=== PATIENT | female | born 1935 | race Caucasian/White ===

== ENCOUNTER 2018-05-17 12:42 | Inpatient (IN) | END 2018-05-22 12:36 | disposition home or self-care (01) | DRG 872 ==

== ENCOUNTER 2019-01-08 20:36 | Inpatient (IN) | payer BC ==
[~2019-01-08] VITALS: Ht 162.6 cm; Wt 74.8 kg
[~2019-01-08 20:36] MED LIST: ALEN70TA5 PO; AMLO-147 PO; APIX2.5T PO; GLIM2TAB PO; LEVE-5 PO; LEVO125T7 PO; METO-448 PO; SIMV10TA PO
[2019-01-09] VITALS (10 sets, daily range): BP systolic 103–123; BP diastolic 59–71; PULSE 63–89; RESP 17–20; Ht 162.6 cm; Wt 74.8 kg
[2019-01-09] MEDS ORDERED: ACETAMINOPHEN 325 MG TAB PO PRN (02:00)
[2019-01-09] MEDS ORDERED: ONDANSETRON 4 MG INJ IV PRN (02:00)
[2019-01-09] MEDS ORDERED: BISACODYL (EC) 5 MG TAB PO PRN (02:00)
[2019-01-09] MEDS ORDERED: NACL 0.9% 3 ML SYG IV SCH (02:00)
[2019-01-09] MEDS ORDERED: FUROSEMIDE 40 MG INJ IV ONE (02:00)
[2019-01-09] MEDS ORDERED: DOCUSATE SODIUM 100 MG CAP PO PRN (02:00)
[2019-01-09] MEDS: LEVOTHYROXINE 125 MCG TAB PO SCH (06:59)
--- NOTE | 2019-01-09 07:44 | HP ---
Date/Time of Note Date/Time of Note DATE: 01/09/19 TIME: 07:44 Assessment/Plan VTE Prophylaxis SCD applied (from Nsg): Yes Pharmacological prophylaxis: NA/contraindicated Pharm contraindication: low risk/ambulating Lines/Catheters IV Catheter Type (from Nrsg): Saline Lock Urinary Cath still in place: No Assessment/Plan Hospital Course This is a 83-year-old female being admitted to the telemetry floor observation for: #1 bilateral lower extremity edema: Suspect undiagnosed CHF. There is trace pitting edema in the bilateral lower extremities after receiving Lasix. Will give patient Lasix 20 mg IV daily. Will obtain an echocardiogram to assess heart morphology. Elevated BNP of approximately 1000. Consider cardiology consultation. #2 bilateral lower extremity pain: Possibly secondary to underlying edema, however she also points to her knees causing her pain, will obtain bilateral x- rays of the knee. #3 itchy scalp: Possibly some more dermatitis/dandruff. Will apply Nizoral shampoo daily #4 history of atrial fibrillation: Currently rate controlled, continue Eliquis #5 hypertension: amlodipine for now, may need to discontinue this if this could be possibly contributing to the lower extremity swelling and will need to confirm with the family if this has been started recently. #6 hypothyroidism: We will check a TSH, continue levothyroxine #7 seizure disorder: Continue Keppra #8 forgetfulness: Likely component of dementia, will need formal evaluation on an outpatient basis. #9 DVT GI prophylaxis: SCDs, no GI prophylaxis indicated Further treatment strategy will be implemented as per the course Result Diagram: 01/09/19 0539 01/09/19 0539 Results 24hrs Laboratory Tests Test 01/08/19 22:33 01/09/19 05:39 White Blood Count 8.5 # 7.4 Red Blood Count 4.47 4.59 Hemoglobin 13.6 13.9 Hematocrit 41.2 42.2 Mean Corpuscular Volume 92.2 91.9 Mean Corpuscular Hemoglobin 30.4 30.3 Mean Corpuscular Hemoglobin Concent 33.0 32.9 Red Cell Distribution Width 13.5 13.7 Platelet Count 245 # 254 Mean Platelet Volume 10.3 11.0 H Immature Granulocytes % 0.200 0.300 Neutrophils % 56.6 54.2 Lymphocytes % 31.4 33.7 Monocytes % 10.7 10.2 Eosinophils % 0.7 1.1 Basophils % 0.4 0.5 Nucleated Red Blood Cells % 0.0 0.0 Immature Granulocytes # 0.020 0.020 Neutrophils # 4.8 4.0 Lymphocytes # 2.7 2.5 Monocytes # 0.9 0.8 Eosinophils # 0.1 0.1 Basophils # 0.0 0.0 Nucleated Red Blood Cells # 0.0 0.0 Sodium Level 137 140 Potassium Level 4.4 4.3 Chloride Level 104 99 Carbon Dioxide Level 26 28 Anion Gap 7 13 Blood Urea Nitrogen 28 H 25 H Creatinine 1.21 H 1.02 H Est Glomerular Filtrat Rate mL/min Glucose Level 106 113 Calcium Level 10.1 9.9 Total Bilirubin 0.5 0.6 Direct Bilirubin 0.00 0.00 Indirect Bilirubin 0.5 0.6 Aspartate Amino Transf (AST/SGOT) 26 29 Alanine Aminotransferase (ALT/SGPT) 16 23 Alkaline Phosphatase 88 73 Troponin I < 0.012 < 0.012 B-Type Natriuretic Peptide 1190 H Total Protein 8.2 H 8.0 Albumin 4.6 4.7 Globulin 3.60 H 3.30 H Albumin/Globulin Ratio 1.27 1.42 Hemoglobin A1c 6.4 H Magnesium Level 2.0 Creatine Kinase 94 Creatine Kinase Index 1.0 Creatinine Kinase MB (Mass) 0.95 Triglycerides Level 78 Cholesterol Level 174 LDL Cholesterol, Calculated 87 HDL Cholesterol 71 Cholesterol/HDL Ratio 2.4 Thyroid Stimulating Hormone (TSH) 1.160 HPI/ROS Admit Date/Time Admit Date/Time Jan 09, 2019 at 01:42 Hx of Present Illness Chief complaint: Bilateral lower extremity edema This is a 83-year-old female who was brought in by her family members with complaints of bilateral lower extremity edema worse on the right than the left. The family apparently reported that the patient is not always compliant with her medications. Family does report that she has been showing to have increased forgetfulness and sometimes puts her medications in her abdomen and lyse that she takes them. Patient at home is ambulatory and independent. She also reports that she has had some itchiness of her scalp which results in pain after she scratches it. Upon my examination of the patient at the bedside she appeared to be in no acute distress. Bilateral lower extremities did not show any overt edema. Chest exam did have some coarse rales on examination. Allergies: NKDA Medications: See NOV ROS Const: As per HPI Eyes : No pain discharge or redness or change in visual acuity ENT: No pain, sore throat, congestion, congestion, dysphagia or discharge Respiratory: No shortness of breath, cough, sputum, wheezing, or pleuritic pain Cardiovascular: No chest pain, palpitation, PND, or edema GI : no change in appetite, abdominal pain, nausea, vomiting, diarrhea, constipation, or change in the color his stool Genitourinary: No dysuria, hematuria, flank pain , discharge or CVA tenderness Musculoskeletal: As per HPI Skin: No rash, bruising or hives Neuro: No headache, dizziness, syncope, seizure, focal weakness Endocrine: No polyuria, polydipsia, temperature intolerance Psych: No hallucination, depression, anxiety or suicidal ideation PMH/Family/Social Past Medical History Atrial fibrillation, hypothyroidism, hypertension, seizures Medications Current Medications Amlodipine Besylate (Norvasc) 10 mg DAILY PO ; Start 01/09/19 at 09:00 Apixaban (Eliquis) 2.5 mg BID PO ; Start 01/09/19 at 09:00 Levetiracetam (Keppra) 500 mg BID PO ; Start 01/09/19 at 09:00 Levothyroxine Sodium (Synthroid) 125 mcg BEFORE BREAKFAST PO Last administered on 01/09/19at 06:59; Admin Dose 125 MCG; Start 01/09/19 at 07:00 Atorvastatin Calcium (Lipitor) 10 mg DAILY@21 PO ; Start 01/09/19 at 21:00 IV Flush (NS 3 ml) 3 ml PER PROTOCOL IV ; Start 01/09/19 at 02:00 Ondansetron HCl (Zofran Inj) 4 mg Q6H PRN IV NAUSEA/VOMITING; Start 01/09/19 at 02:00 Acetaminophen (Tylenol Tab) 650 mg Q6H PRN PO .PAIN 1-3 OR TEMP; Start 01/09/19 at 02:00 Docusate Sodium (Colace) 100 mg Q12H PRN PO .CONSTIPATION; Start 01/09/19 at 02:00 Bisacodyl (Dulcolax) 5 mg DAILY PRN PO .CONSTIPATION; Start 01/09/19 at 02:00 Furosemide (Lasix) 20 mg DAILY IV ; Start 01/09/19 at 09:00; Status UNV Ketoconazole (Nizoral Shampoo) 1 applic ONCE ONCE TOP ; Start 01/09/19 at 08:00; Stop 01/09/19 at 08:01; Status UNV Coded Allergies: No Known Allergy (Unverified , 01/09/19) Past Surgical History Abdominal surgery Family History Significant Family History: no pertinent family hx Social History Alcohol Use: none Smoking Status: Never smoker Drug Use: none Exam/Review of Systems Vital Signs Vitals Vital Signs Date Temp Pulse Resp B/P (MAP) Pulse Ox O2 O2 Flow FiO2 Time Delivery Rate 01/09/19 97.7 88 17 117/67 99 05:15 (84) 01/09/19 Room Air 03:45 Exam Exam General: Patient is a pleasant female currently lying in bed in no acute distress, she does appear to be itching her scalp. HEENT: Atraumatic, normocephalic. The pupils are equal, round and reactive. Extraocular motor are intact, mild flaking noted of the scalp and erythema, Neck: Supple with full range of motion. No rigidity or meningismus Chest: Nontender Lungs: Coarse breath sounds bilaterally, mild rales at the bases, nonlabored breathing Heart: Normal S1-S2, Regular rhythm and rate. No murmur, S3, or S4 Abdomen: Soft , nontender, nondistended , bowel sounds are present. No guarding no rebound tenderness , No masses or organomegaly. No costovertebral temporal angle mass Extremities: Normal to inspection, no edema no cyanosis Neurologic: Alert and oriented, speech normal, cranial nerves II through XII intact Additional Comments Telemetry monitoring: afib, rate controlled. PROCEDURE: XR Chest. CLINICAL INDICATION: Chest pain. TECHNIQUE: AP portable views of the chest were obtained. COMPARISON: 05/17/2018 FINDINGS: There is mild cardiomegaly. There is mild atherosclerotic calcification of the thoracic aorta. There is mild prominence of the central pulmonary vasculature. There is partial lung expansion without focal consolidation. The left costophrenic angle is not well visualized. There are hazy infiltrates involving the paramedian left lower lobe. No signs of pneumothorax is seen.. IMPRESSION: 1. Hazy infiltrates involving the paramedian left lower lobe and lateral left lower lobe, which may be related to atelectasis versus pneumonia. Superimposed p leural effusion is not excluded. 2. Stable mild cardiomegaly with central pulmonary vascular congestion. 3. Mild atherosclerotic calcification of the thoracic aorta. RPTAT: HGAS .Pablo Lew MD, Date Time Electronically viewed and signed by .Pablo Lew MD, MD on 01/08/2019 23:49 .S/ CC: SHAJI HARTMNA [id number] TUCKER TORRES Jan 09, 2019 07:44
[2019-01-09] MEDS: AMLODIPINE 10 MG TAB PO SCH (08:09)
[2019-01-09] MEDS: LEVETIRACETAM 500 MG TAB PO SCH ×2 (08:09→21:29)
[2019-01-09] MEDS: APIXABAN 5 MG TABLET PO SCH ×2 (08:10→21:30)
[2019-01-09] MEDS ORDERED: KETOCONAZOLE 2% SHAMPOO 120 ML BTL TOP ONE (10:00)
[2019-01-09] MEDS: FUROSEMIDE 20 MG INJ IV SCH (10:40)
--- NOTE | 2019-01-09 14:36 | PN ---
Date/Time of Note Date/Time of Note DATE: 01/09/19 TIME: 14:29 Assessment/Plan VTE Prophylaxis Risk score (from Ns)>0 risk: 3 SCD applied (from Ns): Yes Pharmacological prophylaxis: heparin Lines/Catheters IV Catheter Type (from Nrsg): Saline Lock Urinary Cath still in place: No Assessment/Plan Hospital Course Head itching; - topical tx CHF: - TTE pending - Continue lasix Knee pain: - XR with OA, symptomatic care A Fib: - Continue eliquis Dc home tomorrow Result Diagram: 01/09/1939 01/09/19538 Results 24hrs Laboratory Tests Test 01/08/19 22:33 01/09/19 05:39 01/09/19 11:39 White Blood Count 8.5 # 7.4 Red Blood Count 4.47 4.59 Hemoglobin 13.6 13.9 Hematocrit 41.2 42.2 Mean Corpuscular Volume 92.2 91.9 Mean Corpuscular Hemoglobin 30.4 30.3 Mean Corpuscular Hemoglobin Concent 33.0 32.9 Red Cell Distribution Width 13.5 13.7 Platelet Count 245 # 254 Mean Platelet Volume 10.3 11.0 H Immature Granulocytes % 0.200 0.300 Neutrophils % 56.6 54.2 Lymphocytes % 31.4 33.7 Monocytes % 10.7 10.2 Eosinophils % 0.7 1.1 Basophils % 0.4 0.5 Nucleated Red Blood Cells % 0.0 0.0 Immature Granulocytes # 0.020 0.020 Neutrophils # 4.8 4.0 Lymphocytes # 2.7 2.5 Monocytes # 0.9 0.8 Eosinophils # 0.1 0.1 Basophils # 0.0 0.0 Nucleated Red Blood Cells # 0.0 0.0 Sodium Level 137 140 Potassium Level 4.4 4.3 Chloride Level 104 99 Carbon Dioxide Level 26 28 Anion Gap 7 13 Blood Urea Nitrogen 28 H 25 H Creatinine 1.21 H 1.02 H Est Glomerular Filtrat Rate mL/min Glucose Level 106 113 Calcium Level 10.1 9.9 Total Bilirubin 0.5 0.6 Direct Bilirubin 0.00 0.00 Indirect Bilirubin 0.5 0.6 Aspartate Amino Transf (AST/SGOT) 26 29 Alanine Aminotransferase (ALT/SGPT) 16 23 Alkaline Phosphatase 88 73 Troponin I < 0.012 < 0.012 < 0.012 B-Type Natriuretic Peptide 1190 H Total Protein 8.2 H 8.0 Albumin 4.6 4.7 Globulin 3.60 H 3.30 H Albumin/Globulin Ratio 1.27 1.42 Hemoglobin A1c 6.4 H Magnesium Level 2.0 Creatine Kinase 94 96 Creatine Kinase Index 1.0 1.0 Creatinine Kinase MB (Mass) 0.95 0.99 Triglycerides Level 78 Cholesterol Level 174 LDL Cholesterol, Calculated 87 HDL Cholesterol 71 Cholesterol/HDL Ratio 2.4 Thyroid Stimulating Hormone (TSH) 1.160 Subjective 24 Hr Interval Summary Free Text/Dictation SOB improved Complains of head itch and knee pain Exam/Review of Systems Exam Vitals Vital Signs Date Temp Pulse Resp B/P (MAP) Pulse Ox O2 O2 Flow FiO2 Time Delivery Rate 01/09/19 69 12:00 01/09/19 98.1 19 103/59 100 11:37 (74) 01/09/19 Room Air 03:45 Results Results 24hrs Laboratory Tests Test 01/08/19 22:33 01/09/19 05:39 01/09/19 11:39 White Blood Count 8.5 # 7.4 Red Blood Count 4.47 4.59 Hemoglobin 13.6 13.9 Hematocrit 41.2 42.2 Mean Corpuscular Volume 92.2 91.9 Mean Corpuscular Hemoglobin 30.4 30.3 Mean Corpuscular Hemoglobin Concent 33.0 32.9 Red Cell Distribution Width 13.5 13.7 Platelet Count 245 # 254 Mean Platelet Volume 10.3 11.0 H Immature Granulocytes % 0.200 0.300 Neutrophils % 56.6 54.2 Lymphocytes % 31.4 33.7 Monocytes % 10.7 10.2 Eosinophils % 0.7 1.1 Basophils % 0.4 0.5 Nucleated Red Blood Cells % 0.0 0.0 Immature Granulocytes # 0.020 0.020 Neutrophils # 4.8 4.0 Lymphocytes # 2.7 2.5 Monocytes # 0.9 0.8 Eosinophils # 0.1 0.1 Basophils # 0.0 0.0 Nucleated Red Blood Cells # 0.0 0.0 Sodium Level 137 140 Potassium Level 4.4 4.3 Chloride Level 104 99 Carbon Dioxide Level 26 28 Anion Gap 7 13 Blood Urea Nitrogen 28 H 25 H Creatinine 1.21 H 1.02 H Est Glomerular Filtrat Rate mL/min Glucose Level 106 113 Calcium Level 10.1 9.9 Total Bilirubin 0.5 0.6 Direct Bilirubin 0.00 0.00 Indirect Bilirubin 0.5 0.6 Aspartate Amino Transf (AST/SGOT) 26 29 Alanine Aminotransferase (ALT/SGPT) 16 23 Alkaline Phosphatase 88 73 Troponin I < 0.012 < 0.012 < 0.012 B-Type Natriuretic Peptide 1190 H Total Protein 8.2 H 8.0 Albumin 4.6 4.7 Globulin 3.60 H 3.30 H Albumin/Globulin Ratio 1.27 1.42 Hemoglobin A1c 6.4 H Magnesium Level 2.0 Creatine Kinase 94 96 Creatine Kinase Index 1.0 1.0 Creatinine Kinase MB (Mass) 0.95 0.99 Triglycerides Level 78 Cholesterol Level 174 LDL Cholesterol, Calculated 87 HDL Cholesterol 71 Cholesterol/HDL Ratio 2.4 Thyroid Stimulating Hormone (TSH) 1.160 Medications Medication Current Medications Amlodipine Besylate (Norvasc) 10 mg DAILY PO Last administered on 01/09/19at 08:09; Admin Dose 10 MG; Start 01/09/19 at 09:00 Apixaban (Eliquis) 2.5 mg BID PO Last administered on 01/09/19at 08:10; Admin Dose 2.5 MG; Start 01/09/19 at 09:00 Levetiracetam (Keppra) 500 mg BID PO Last administered on 01/09/19at 08:09; Admin Dose 500 MG; Start 01/09/19 at 09:00 Levothyroxine Sodium (Synthroid) 125 mcg BEFORE BREAKFAST PO Last administered on 01/09/19at 06:59; Admin Dose 125 MCG; Start 01/09/19 at 07:00 Atorvastatin Calcium (Lipitor) 10 mg DAILY@21 PO ; Start 01/09/19 at 21:00 IV Flush (NS 3 ml) 3 ml PER PROTOCOL IV ; Start 01/09/19 at 02:00 Ondansetron HCl (Zofran Inj) 4 mg Q6H PRN IV NAUSEA/VOMITING; Start 01/09/19 at 02:00 Acetaminophen (Tylenol Tab) 650 mg Q6H PRN PO .PAIN 1-3 OR TEMP; Start 01/09/19 at 02:00 Docusate Sodium (Colace) 100 mg Q12H PRN PO .CONSTIPATION; Start 01/09/19 at 02:00 Bisacodyl (Dulcolax) 5 mg DAILY PRN PO .CONSTIPATION; Start 01/09/19 at 02:00 Furosemide (Lasix) 20 mg DAILY IV Last administered on 01/09/19at 10:40; Admin Dose 20 MG; Start 01/09/19 at 09:00 CYDNEY HEATON MD Jan 09, 2019 14:36
--- NOTE | 2019-01-09 19:45 | RADRPT ---
Echocardiogram Report Patient Name: MARGRET JONESPatient ID: [id number] : 1935 (83y 8m)Study Date: 01/09/2019 8:23:32 AM Gender: FAccession #: [id number] Tech: Nicanor Jay [facility] Location: 4- Ref.Physician: TUCKER TORRES Height(Cm): BSA: Weight(Kg): Quality: AdequateAccount #: Procedures: Echocardiographic Report: Transthoracic echocardiogram with complete 2D, M-Mode, and doppler examination. Indications: Congestive Heart Failure. Measurements: 2D/M Mode Doppler Measurement Value Normal Range Measurement Value Normal Range LVIDd 2D 2.8 [ 3.8 - 5.2 ] cm AV Peak Aryan 1.4 [ 100.0 - 170.0 ] cm/sec LVIDs 2D 1.9 [ 2.2 - 3.5 ] cm AV Peak PG 7.0 [ 2.0 - 9.0 ] mmHg LVPWd 2D 1.1 [ 0.6 - 0.9 ] cm LVOT Peak Aryan 0.8 [ 70.0 - 110.0 ] cm/sec IVSd 2D 1.5 [ 0.6 - 0.9 ] cm LVOT Peak PG 3.0 [ 2.0 - 6.0 ] mmHg AoR Diam 2D 1.8 [ 2.3 - 3.1 ] cm MV E Peak Aryan 1.0 [ 60.0 - 130.0 ] cm/sec EDV 2D 30.3 [ 46.0 - 106.0 ] ml MV A Peak Aryan 0.2 [ 100.0 - 120.0 ] cm/sec ESV 2D 11.8 [ 14.0 - 42.0 ] ml MV E/A 5.1 [ 0.8 - 1.5 ] ratio EF 2D 61.1 [ 54.0 - 74.0 ] percent MV Decel Time 155 [ 104 - 258 ] msec LA Dimen 2D 5.1 [ 2.7 - 3.8 ] cm Lat E` Aryan 0.1 [ 10.0 - 15.0 ] cm/sec Lateral E/E` 10.3 [ 1.0 - 2.0 ] ratio MV E/A 5.1 [ 0.8 - 1.5 ] ratio TR Peak Aryan 2.9 [ 100.0 - 280.0 ] cm/sec TR Peak PG 34.0 mmHg RVSP 44.0 [ 10.0 - 36.0 ] mmHg Findings: Left Ventricle: Normal left ventricular systolic function. Normal left ventricular cavity size. Sigmoid septum. Ejection fraction is visually estimated at 65 %. Tissue Doppler/Mitral Doppler indices are consistent with pseudonormalization with mildly elevated left atrial pressure (Stage II diastolic dysfunction). Right Ventricle: Normal right ventricular size. Normal right ventricular systolic function. Left Atrium: There is severe enlargement of left atrium. Right Atrium: There is mild enlargement of right atrium. Mitral Valve: Mild mitral leaflet calcification. Mild mitral annular calcification. Mild mitral valve regurgitation. Aortic Valve: No hemodynamically significant aortic stenosis by doppler. Aortic cusps appear mildly calcified. Tricuspid Valve: Normal appearance of the tricuspid valve. Estimated peak PA systolic pressure 44 mmHg. There is mild to moderate tricuspid regurgitation. Pulmonic Valve: Normal pulmonic valve appearance. Pericardium: Normal pericardium with no significant pericardial effusion. Aorta: Normal aortic root. IVC: Normal size and normal respiratory collapse consistent with normal right atrial pressure. Conclusions: Normal left ventricular systolic function. Normal left ventricular cavity size. Sigmoid septum. Ejection fraction is visually estimated at 65 %. Tissue Doppler/Mitral Doppler indices are consistent with pseudonormalization with mildly elevated left atrial pressure (Stage II diastolic dysfunction). There is severe enlargement of left atrium. There is mild enlargement of right atrium. Mild mitral leaflet calcification. Mild mitral annular calcification. Mild mitral valve regurgitation. No hemodynamically significant aortic stenosis by doppler. Aortic cusps appear mildly calcified. Normal appearance of the tricuspid valve. Estimated peak PA systolic pressure 44 mmHg. There is mild to moderate tricuspid regurgitation. Electronically Signed By: Lion Rosales 2019-01-09 19:44:15 PDT
[2019-01-09] MEDS ORDERED: ATORVASTATIN 10 MG TAB PO SCH (21:00)
[2019-01-10] VITALS (10 sets, daily range): BP systolic 102–116; BP diastolic 53–67; PULSE 63–81; RESP 18–20
[2019-01-10] MEDS ORDERED: DIPHENHYDRAMINE 25 MG CAP PO ONE (04:30)
[2019-01-10] MEDS: LEVOTHYROXINE 125 MCG TAB PO SCH (07:05)
[2019-01-10] MEDS: LEVETIRACETAM 500 MG TAB PO SCH (08:03)
[2019-01-10] MEDS: FUROSEMIDE 20 MG INJ IV SCH (08:03)
[2019-01-10] MEDS: APIXABAN 5 MG TABLET PO SCH (08:03)
[2019-01-10] MEDS: AMLODIPINE 10 MG TAB PO SCH (09:00)
[2019-01-10] MEDS ORDERED: KETO120S3 TOP (12:22)
[2019-01-10] MEDS ORDERED: FURO20TA3 PO (12:22)
--- NOTE | 2019-01-10 14:04 | DS ---
Date/Time of Note Date/Time of Note DATE: 01/10/19 TIME: 14:03 Discharge Summary Admission/Discharge Info Admit Date/Time Jan 09, 2019 at 11:04 Discharge Date/Time Discharge Diagnosis Acute diastolic CHF Patient Condition: Stable Hospital Course Head itching; - topical tx was given. Ketoconazole was prescribed at discharge CHF: - TTE showed normal systolic function, mild diastolic disfunction. She was prescribed lasix at discharge - Continue lasix Knee pain with swelling - XR showed OA. Duplex was negative for DVT. She was provided symptomatic care A Fib: - Continued on eliquis Home Meds Active Scripts Ketoconazole* (Ketoconazole*) 2% - 120 Ml Shampoo, 1 APPLIC TOP DAILY for 7 Days, #1 EA WASH HAIR/SCALP AND RINSE OFF Prov:CYDNEY HEATON MD 01/10/19 Furosemide* (Furosemide*) 20 Mg Tablet, 20 MG PO Q48H for 120 Days, #60 TAB Prov:CYDNEY HEATON MD 01/10/19 Reported Medications Apixaban* (Eliquis*) 2.5 Mg Tablet, 2.5 MG PO BID, TAB 05/17/18 Amlodipine Besylate* (Amlodipine Besylate*) 10 Mg Tablet, 10 MG PO DAILY, #30 TAB 05/17/18 Levetiracetam* (Keppra*) 500 Mg Tablet, 500 MG PO BID, TAB 05/17/18 Simvastatin* (Zocor*) 10 Mg Tablet, 10 MG PO QHS, #30 TAB 05/17/18 Levothyroxine Sodium* (Levothyroxine Sodium*) 125 Mcg Tablet, 125 MCG PO BEFORE BREAKFAST, #30 TAB 05/17/18 Discontinued Reported Medications Alendronate Sodium* (Fosamax*) 70 Mg Tablet, 70 MG PO Q7D, #4 TAB 05/17/18 Glimepiride* (Glimepiride*) 2 Mg Tablet, 2 MG PO DAILY, TAB 05/17/18 Metoprolol Tartrate* (Lopressor*) 25 Mg Tab, 25 MG PO BID, #60 TAB 05/17/18 Primary Care Provider Real Lopez Pending Labs Laboratory Tests Test 01/10/19 05:31 White Blood Count 7.1 10^3/ul (4.8-10.8) Red Blood Count 4.31 10^6/ul (4.20-5.40) Hemoglobin 13.1 g/dl (12.0-16.0) Hematocrit 39.5 % (37.0-47.0) Mean Corpuscular Volume 91.6 fl (82.0-101.0) Mean Corpuscular Hemoglobin 30.4 pg (29.0-33.0) Mean Corpuscular Hemoglobin Concent 33.2 g/dl (32.0-37.0) Red Cell Distribution Width 13.6 % (11.5-14.5) Platelet Count 231 10^3/UL (140-415) Mean Platelet Volume 10.9 fl (7.4-10.4) Immature Granulocytes % 0.300 % (0.001-0.429) Neutrophils % 46.3 % (39.0-77.0) Lymphocytes % 39.0 % (15.0-51.0) Monocytes % 11.8 % (0.0-11.0) Eosinophils % 2.0 % (0.0-7.0) Basophils % 0.6 % (0.0-2.0) Nucleated Red Blood Cells % 0.0 /100WBC (0.0-0.0) Immature Granulocytes # 0.020 10^3/ul (0.0-0.031) Neutrophils # 3.3 10^3/ul (1.6-7.5) Lymphocytes # 2.8 10^3/ul (0.8-2.9) Monocytes # 0.8 10^3/ul (0.3-0.9) Eosinophils # 0.1 10^3/ul (0.0-0.5) Basophils # 0.0 10^3/ul (0.0-0.1) Nucleated Red Blood Cells # 0.0 10^3/ul (0.0-0.0) Sodium Level 138 mmol/L (135-144) Potassium Level 3.8 mmol/L (3.5-5.1) Chloride Level 100 mmol/L (97-110) Carbon Dioxide Level 26 mmol/L (21-31) Anion Gap 12 (5-13) Blood Urea Nitrogen 26 mg/dl (7-20) Creatinine 1.08 mg/dl (0.44-1.00) Est Glomerular Filtrat Rate mL/min mL/min (>60) Glucose Level 117 mg/dl (70-220) Calcium Level 9.1 mg/dl (8.4-10.2) Total Bilirubin 0.8 mg/dl (0.2-1.3) Direct Bilirubin 0.00 mg/dl (0.00-0.20) Indirect Bilirubin 0.8 mg/dl (0-1.1) Aspartate Amino Transf (AST/SGOT) 25 IU/L (15-46) Alanine Aminotransferase (ALT/SGPT) 20 IU/L (13-69) Alkaline Phosphatase 67 IU/L (42-121) Total Protein 7.0 g/dl (6.1-8.1) Albumin 3.9 g/dl (3.3-4.9) Globulin 3.10 g/dl (1.3-3.2) Albumin/Globulin Ratio 1.25 CYDNEY HEATON MD Jan 10, 2019 14:04
== END 2019-01-10 18:37 | disposition home or self-care (01) | DRG 291 ==
LOC: E/R 20:36 → 6WM 01-09 01:42 → OBSVTOIN 01-09 11:04
PROVIDERS: ADMIT Family Medicine; ATTEND Internal Medicine
DX: I11.0 Hypertensive heart disease with heart failure (principal); I50.31 Acute diastolic (congestive) heart failure; I48.91 Unspecified atrial fibrillation; E03.9 Hypothyroidism, unspecified; G40.909 Epilepsy, unspecified, not intractable, without status epilepticus; L29.9 Pruritus, unspecified; M17.0 Bilateral primary osteoarthritis of knee
CPT/HCPCS: 71045; 73562; 80053; 80061; 82306; 82550; 82553; 83036; 83735; 83880; 84443; 84484; 85025; 93005; 93306; 93970; G0378; J1940

== ENCOUNTER 2019-02-01 10:08 | Inpatient (IN) | payer BC ==
[~2019-02-01] VITALS: Ht 157.5 cm; Wt 74.6 kg
[~2019-02-01 10:08] MED LIST changes: -ALEN70TA5 PO; +FURO20TA3 PO; -GLIM2TAB PO; +KETO120S3 TOP; -METO-448 PO
[2019-02-01] MEDS ORDERED: LEVO150T64 PO (14:15)
[2019-02-01] MEDS ORDERED: OSC500D PO (14:15)
[2019-02-01] MEDS ORDERED: ATOR10TA65 PO (14:15)
[2019-02-01] MEDS ORDERED: VALS160T20 PO (14:15)
[2019-02-01] MEDS ORDERED: ACETAMINOPHEN 325 MG TAB PO PRN ×2 (15:00→16:00)
[2019-02-01] MEDS ORDERED: ONDANSETRON 4 MG INJ IV PRN ×2 (15:00→16:00)
[2019-02-01] MEDS ORDERED: FUROSEMIDE 40 MG INJ IV ONE (15:00)
[2019-02-01] MEDS ORDERED: ASPIRIN 81 MG TAB PO ONE (15:00)
--- NOTE | 2019-02-01 15:08 | ERD ---
ER Documentation Chief Complaint Chief Complaint PT with constant CP radiating to the neck and SOB since last night HPI This is an 83-year-old female with a past medical history of hypertension, hyperlipidemia, coronary artery disease, congestive heart failure, atrial fibrillation, previous stroke on Eliquis who is presenting with 1 day of constant pressure-like moderate left-sided chest pain radiating into the neck with associated shortness of breath, beginning last night. The patient does not endorse any diaphoresis. The patient does mild lightheadedness but no dizziness. The patient does not endorse any alleviating or exacerbating factors. The patient denies feeling sick recently. The patient denies fever or chills. The patient has had no headache or vision changes. The patient does not endorse neck or back pain. The patient denies nausea or vomiting. The patient denies abdominal pain. The patient denies changes to bowel movements or urination. The patient has had no focal deficits. The patient has had no weakness or numbness or tingling to the face or extremities. ROS All systems reviewed and are negative except as per history of present illness. Medications Home Meds Active Scripts Ketoconazole* (Ketoconazole*) 2% - 120 Ml Shampoo, 1 APPLIC TOP DAILY for 7 Days, #1 EA WASH HAIR/SCALP AND RINSE OFF Prov:CYDNEY HEATON MD 01/10/19 Furosemide* (Furosemide*) 20 Mg Tablet, 20 MG PO Q48H for 120 Days, #60 TAB Prov:CYDNEY HEATON MD 01/10/19 Reported Medications Calcium Carbonate/Vitamin D3 (Oyster Shell Calcium + D Cplt) 1 Each Tablet, 1 TAB PO DAILY for 600MG-400IU, TAB 02/01/19 Valsartan* (Diovan*) 160 Mg Tablet, 160 MG PO DAILY, TAB 02/01/19 Atorvastatin Calcium (Atorvastatin Calcium) 10 Mg Tablet, 10 MG PO QHS, #30 TAB 02/01/19 Levothyroxine Sodium* (Levoxyl*) 150 Mcg Tablet, 150 MCG PO BEFORE BREAKFAST, #30 TAB 02/01/19 Apixaban* (Eliquis*) 2.5 Mg Tablet, 2.5 MG PO BID, TAB 05/17/18 Amlodipine Besylate* (Amlodipine Besylate*) 10 Mg Tablet, 10 MG PO DAILY, #30 TAB 05/17/18 Levetiracetam* (Keppra*) 500 Mg Tablet, 500 MG PO BID, TAB 05/17/18 Simvastatin* (Zocor*) 10 Mg Tablet, 10 MG PO QHS, #30 TAB 05/17/18 Discontinued Reported Medications Levothyroxine Sodium* (Levothyroxine Sodium*) 125 Mcg Tablet, 125 MCG PO BEFORE BREAKFAST, #30 TAB 05/17/18 Allergies Allergies: Coded Allergies: No Known Allergy (Unverified , 02/01/19) PMhx/Soc History of Surgery: Yes (ABDOMINAL SX) Anesthesia Reaction: No Hx Neurological Disorder: Yes (Previous CVA) Hx Respiratory Disorders: No Hx Cardiac Disorders: Yes (Hypertension, hyperlipidemia, atrial fibrillation, congestive heart failure) Hx Psychiatric Problems: No Hx Miscellaneous Medical Probl: Yes (Hypothyroidism) Hx Alcohol Use: No Hx Substance Use: No Hx Tobacco Use: No Smoking Status: Never smoker FmHx Family History: diabetes Physical Exam Vitals Vital Signs Date Temp Pulse Resp B/P (MAP) Pulse Ox O2 O2 Flow FiO2 Time Delivery Rate 02/01/19 97.8 87 18 115/60 99 10:11 (78) Physical Exam Const: No apparent distress, well-developed, well-nourished Head: Normocephalic, Atraumatic Eyes: Normal Conjunctiva. Extraocular movements intact. Pupils equal, round and reactive to light ENT: Normal External Ears, Nose and Mouth. Neck: Full range of motion. No meningismus. Resp: Bilateral rales. No wheezes or rhonchi Cardio: Regular rate. Irregular regular rhythm. No murmurs, rubs or gallops Abd: Soft, non tender, non distended. Normal bowel sounds Skin: No petechiae or rashes Back: No midline tenderness. No CVA tenderness Ext: No cyanosis. 1+ bilateral lower extremity edema. Neur: Awake and alert, oriented 4. Cranial nerves intact. No facial droop. Normal strength, sensation and coordination. Psych: Normal Mood and Affect Result Diagram: 02/01/19 1230 02/01/19 1230 Results 24 hrs Laboratory Tests Test 02/01/19 12:30 White Blood Count 11.1 10^3/ul Red Blood Count 3.97 10^6/ul Hemoglobin 12.2 g/dl Hematocrit 37.3 % Mean Corpuscular Volume 94.0 fl Mean Corpuscular Hemoglobin 30.7 pg Mean Corpuscular Hemoglobin Concent 32.7 g/dl Red Cell Distribution Width 13.2 % Platelet Count 218 10^3/UL Mean Platelet Volume 10.9 fl Immature Granulocytes % 0.600 % Neutrophils % 70.2 % Lymphocytes % 18.9 % Monocytes % 9.6 % Eosinophils % 0.3 % Basophils % 0.4 % Nucleated Red Blood Cells % 0.0 /100WBC Immature Granulocytes # 0.070 10^3/ul Neutrophils # 7.8 10^3/ul Lymphocytes # 2.1 10^3/ul Monocytes # 1.1 10^3/ul Eosinophils # 0.0 10^3/ul Basophils # 0.0 10^3/ul Nucleated Red Blood Cells # 0.0 10^3/ul Prothrombin Time 14.1 Sec Prothrombin Time Ratio 1.1 INR International Normalized Ratio 1.08 Sodium Level 139 mmol/L Potassium Level 4.0 mmol/L Chloride Level 106 mmol/L Carbon Dioxide Level 25 mmol/L Anion Gap 8 Blood Urea Nitrogen 15 mg/dl Creatinine 0.95 mg/dl Est Glomerular Filtrat Rate mL/min mL/min Glucose Level 119 mg/dl Calcium Level 9.1 mg/dl Troponin I < 0.012 ng/ml B-Type Natriuretic Peptide 2710 PG/ML Current Medications Medications Dose Sig/Sonya Start Time Status Last (Trade) Ordered Route PRN Stop Time Admin Dose Reason Admin Furosemide 40 mg ONCE ONCE 02/01/19 UNV (Lasix) IV 15:00 02/01/19 15:01 Aspirin 324 mg ONCE ONCE 02/01/19 UNV (Aspirin) PO 15:00 02/01/19 15:01 Procedures/MDM MDM The patient's presentation warrants further investigation. Previous medical records, if available, were reviewed. LABS The patient's laboratory testing was obtained and reviewed. No emergent treatment was required unless described below. CBC: Leukocytosis without shift, likely reactive. No E/o anemia or thrombocytopenia Chemistry: No E/o severe acidosis or alkalosis or renal failure or diabetic ketoacidosis PT/INR: No E/o significant coagulopathy Troponin: No E/o acute ischemia BNP: E/o heart failure EKG EKG read by me: Rate/Rhythm: Regular rate, irregular irregular rhythm. Atrial fibrillation at 90 bpm Intervals: Normal QRS and QTc. No P waves. [place]: Normal Impression: Nonspecific repolarization changes without evidence of acute ischemia. Atrial fibrillation IMAGING Imaging and Radiology interpretation reviewed. CXR FINDINGS: SUPPORT DEVICES: None CARDIAC AND MEDIASTINAL SILHOUETTES: Stable cardiomegaly with aortic atherosclerotic calcifications. LUNGS: The lung volumes are diminished. There is mild central pulmonary vascular congestion without overt rosanna pulmonary edema. My chronic elevation of the right diaphragm with adjacent subsegmental atelectasis. No consolidation or pleural effusion. PNEUMOTHORAX: None. OSSEOUS STRUCTURES: Unremarkable. IMPRESSION: 1. Mild central pulmonary vascular congestion without overt rosanna pulmonary edema. 2. Diminished lung volumes with lower lobe pulmonary vessel crowding and/or subsegmental atelectasis. 3. Stable cardiomegaly with aortic atherosclerosis. Electronically viewed and signed by Rose Camejo Physician on 02/01/2019 12:55 TREATMENT/DISPOSITION The patient presents primarily for chest pain. There is evidence of worsening heart failure as well. The patient symptoms are concerning for a possible car diac etiology. The patient does have nonspecific repolarization changes on the EKG. The patient's troponin is negative, but I do feel that the patient does require serial evaluation given her significant cardiac history. The patient was given aspirin and a dose of Lasix in the emergency department. The patient's chest xray does not reveal pneumonia or pneumothorax or pleural effusions. The patient does not have a widened mediastinum and does not have signs or symptoms concerning for thoracic aortic aneurysm or dissection. The patient does not have pneumomediastinum or signs concerning for esophageal tear or rupture. The patient has no clinical or radiographic signs of pericardial effusion or tamponade. The patient does not have pneumoperitoneum and I have decreased suspicion of viscus perforation as possible referred pain. The patient does not have a diagnosis of COPD and is not wheezing today. The patient is not tachypneic or hypoxic. The patient is breathing comfortably and without pleuritic pain. The patient is not on hormonal therapy. The patient has no history of clotting or bleeding disorders. The patient has no calf tenderness. The patient has had no hemoptysis. I have decreased suspicion for PE. The patient's troponin and EKG are reassuring. I have low suspicion for acute coronary syndrome. ADMISSION At this time, I feel that the patient requires admission for further evaluation and management. The patient will be admitted to [facility] in accordance with the [facility]'s insurance. The patient was accepted by Dr. Mckeon at 3PM on 02/01/2019. Disclaimer: Inadvertent spelling and grammatical errors are likely due to EHR/dictation software use and do not reflect on the overall quality of patient care. Note that the electronic time recorded on this note does not necessarily reflect the actual time of the patient encounter. Departure Diagnosis: Primary Impression: Chest pain Chest pain type: unspecified Qualified Codes: R07.9 - Chest pain, unspecified Additional Impressions: CHF (congestive heart failure) Heart failure type: unspecified Heart failure chronicity: acute on chronic Qualified Codes: I50.9 - Heart failure, unspecified Elevated brain natriuretic peptide (BNP) level Leukocytosis Leukocytosis type: unspecified Qualified Codes: D72.829 - Elevated white blood cell count, unspecified Condition: Serious ASH FORTE MD February 01, 2019 15:07
[2019-02-01] MEDS ORDERED: NITROGLYCERIN (SL) 0.4 MG TAB SL PRN (16:00)
[2019-02-01] MEDS ORDERED: LORAZEPAM 2 MG INJ IV PRN (16:00)
[2019-02-01] MEDS ORDERED: morphine 2 MG INJ IV PRN (16:00)
[2019-02-01] MEDS ORDERED: hydrALAzine 20 MG INJ IV PRN (16:00)
[2019-02-01] MEDS ORDERED: MAGNESIUM HYDROXIDE 30ML CUP PO PRN (16:00)
[2019-02-01] MEDS ORDERED: DOCUSATE SODIUM 100 MG CAP PO PRN (16:00)
[2019-02-01] MEDS ORDERED: HYDROCODONE/APAP (5/325) TAB PO PRN (16:00)
[2019-02-01] MEDS ORDERED: NACL 0.9% 3 ML SYG IV SCH (16:00)
[2019-02-01] MEDS ORDERED: ALBUTEROL/IPRATROPIUM (NEB) 3 ML AMP HHN PRN (16:00)
--- NOTE | 2019-02-01 16:14 | HP ---
DATE OF ADMISSION: 02/01/2019 IDENTIFICATION: This is an 83-year-old female. CHIEF COMPLAINT: Chest pain and shortness of breath. HISTORY OF PRESENT ILLNESS: An 83-year-old female with past medical history of high cholesterol, nacho stolic dysfunction, prior stroke, prior flu, hypertension, atrial fibrillation on Eliquis, hypothyroi dism, seizures who comes in with chest pain. She said the symptoms began yesterday mildly radiating to the left arm, pressure-like sensation in the left chest. She does have some mild shortness of yogesh ath symptoms. Denied any upper or lower GI bleeding. No nausea, vomiting. No fevers or chills. No diarrhea or constipation. The patient was here at our hospital last month from 01/09/2019 to 2018. At that time, she was treated for mild CHF exacerbation and head itching. When she came in to day, she was found with elevated BNP levels of 2700 and her chest x-ray today did show signs of mild central pulmonary vascular congestion without overt rosanna pulmonary edema. There are also diminished lung volumes with lower lobe pulmonary vessel crowding or subsegmental atelectasis, stable cardiomeg lesley with aortic atherosclerosis and the patient in the ER received high dose aspirin and a dose of IV Lasix as well. PAST MEDICAL HISTORY: As above. ALLERGIES: NO KNOWN DRUG ALLERGIES. HOME MEDICATIONS: 1. Eliquis 2.5 mg b.i.d. 2. Amlodipine 10 mg daily. 3. Atorvastatin 10 mg at bedtime. 4. Zocor 10 mg at bedtime. 5. Diovan 160 mg daily. 6. Keppra 500 mg b.i.d. 7. Calcium carbonate/vitamin D3 one tab daily. 8. Lasix 20 mg p.o. q.48 hours. 9. Levothyroxine 150 mcg every morning. 10. Ketoconazole shampoo apply topically daily. PAST SURGICAL HISTORY: She has had some kind of abdominal surgery in the past. SOCIAL HISTORY: Negative for smoking or drinking or IV drug abuse. FAMILY HISTORY: Positive for diabetes. PHYSICAL EXAMINATION: VITAL SIGNS: Today, T-max 97.8, pulse 87, respirations 18, blood pressure 115/60, satting at 99% on room air. GENERAL: The patient is lying in bed, answering questions appropriately, in no acute distress. HEENT: Pupils are equal, round, reactive to light. Extraocular muscles are intact. NECK: Supple, no thyromegaly. LUNGS: Slightly distant breath sounds bilaterally. No wheezes. CARDIOVASCULAR: Irregularly irregular heart rate. No rubs or gallops. ABDOMEN: Soft, nontender, nondistended. Normal bowel sounds. No rebound or guarding. MUSCULOSKELETAL: A 1+ pitting edema bilateral lower extremities to the mid calves. NEUROLOGIC: No focal deficits. LABORATORIES: WBC 11.1. The rest of the CBC is normal. Troponin is negative x1. The basic metabol ic panel is normal. Troponin is negative x1. BNP is 2710. Coags are normal. DIAGNOSTIC DATA: We mentioned the chest x-ray findings. ASSESSMENT AND PLAN: An 83-year-old female coming in with chest pain and shortness breath symptoms. 1. Chest pain, shortness of breath, rule out acute coronary syndrome. Also, signs of congestive hea rt failure exacerbation, so we will admit the patient. Keep head of bed elevated greater than 30 deg micheal. Put her on Lasix, morphine, oxygen, nitroglycerin. Also, continue high dose aspirin. Monitor ins and outs. Get PT and OT consults. We will also trend her troponins q.6 hours x2 more. Put on high dose aspirin, morphine, oxygen, nitroglycerin as well. We will get a cardiology consult as well . 2. History of hypertension. Again, see #1. She will be on hydralazine IV p.r.n. greater than systo lic 160. She will be on IV Lasix. 3. Hypothyroidism. Continue levothyroxine. Follow up thyroid panel. 4. History of seizures. Continue Keppra at current dose. 5. High cholesterol. Follow up lipid panel. Continue statin. 6. History of atrial fibrillation, presently rate control. Monitor on telemetry floor. Continue El iquis as well low-dose for clot prevention. 7. Gastrointestinal prophylaxis. PPI. 8. Deep venous thrombosis prophylaxis. Eliquis. Dictated By: INDIGO FARFAN Conf#: [id number] DID#: [id number] CC: RODOLFO SANTO DO;*EndCC*
--- NOTE | 2019-02-01 18:03 | CONS ---
Assessment/Plan Cardiology NYHA: II Heart Failure Type: Acute on Chronic Heart Failure Type: Diastolic Assessment/Plan Hospital Course (Demo Recall) Acute decompensated diastolic congestive heart failure Preserved ejection fraction Mitral and tricuspid valve regurgitation Atrial fibrillation Hypertension -Patient with evidence of volume overload on examination. Chest x-ray with pulmonary vascular congestion as well. Initial ECG with no significant ischemic abnormalities, initial cardiac enzymes are negative -We will continue IV diuretics, obtain serial cardiac enzymes, adjust dose of Eliquis, decrease aspirin since patient on Eliquis. -Start beta-wilfrido as heart rate and blood pressure permits, ARB as blood pressure and renal function permits Consultation Date/Type/Reason Admit Date/Time Type of Consult Cardiology Reason for Consultation CHF Date/Time of Note DATE: 02/01/19 TIME: 17:54 Hx of Present Illness This is an 83-year-old female with past medical history of diastolic congestive heart failure, atrial fibrillation who presents with multiple complaints. She complains of shortness of breath which has not intermittently. At times worse with lying down. She is unsure if exertion worsens her shortness of breath. She denies any chest pain with exertion. She complains of chest pain when she coughs. She complains of dry mouth. She complains of overall feeling tired. She denies any palpitations. She thinks she is compliant with her medications but is unsure what she takes. She denies any fevers or chills. She denies any lower extremity edema. 12 point review of systems was performed with all pertinent positives and ne gatives mentioned above and all else is negative Past Medical History Atrial fibrillation Medical History: congestive heart failure, hypertension, hypothyroid Home Meds Active Scripts Ketoconazole* (Ketoconazole*) 2% - 120 Ml Shampoo, 1 APPLIC TOP DAILY for 7 Days, #1 EA WASH HAIR/SCALP AND RINSE OFF Prov:CYDNEY HEATON MD 01/10/19 Furosemide* (Furosemide*) 20 Mg Tablet, 20 MG PO Q48H for 120 Days, #60 TAB Prov:CYDNEY HEATON MD 01/10/19 Reported Medications Calcium Carbonate/Vitamin D3 (Oyster Shell Calcium + D Cplt) 1 Each Tablet, 1 TAB PO DAILY for 600MG-400IU, TAB 02/01/19 Valsartan* (Diovan*) 160 Mg Tablet, 160 MG PO DAILY, TAB 02/01/19 Atorvastatin Calcium (Atorvastatin Calcium) 10 Mg Tablet, 10 MG PO QHS, #30 TAB 02/01/19 Levothyroxine Sodium* (Levoxyl*) 150 Mcg Tablet, 150 MCG PO BEFORE BREAKFAST, #30 TAB 02/01/19 Apixaban* (Eliquis*) 2.5 Mg Tablet, 2.5 MG PO BID, TAB 05/17/18 Amlodipine Besylate* (Amlodipine Besylate*) 10 Mg Tablet, 10 MG PO DAILY, #30 TAB 05/17/18 Levetiracetam* (Keppra*) 500 Mg Tablet, 500 MG PO BID, TAB 05/17/18 Simvastatin* (Zocor*) 10 Mg Tablet, 10 MG PO QHS, #30 TAB 05/17/18 Discontinued Reported Medications Levothyroxine Sodium* (Levothyroxine Sodium*) 125 Mcg Tablet, 125 MCG PO BEFORE BREAKFAST, #30 TAB 05/17/18 Medications Current Medications Ondansetron HCl (Zofran Inj) 4 mg ER BRIDGE PRN IV NAUSEA/VOMITING; Start 02/01/19 at 15:00; Stop 02/02/19 at 14:59 Acetaminophen (Tylenol Tab) 650 mg ER BRIDGE PRN PO .MILD PAIN 1-3 OR TEMP; Start 02/01/19 at 15:00; Stop 02/02/19 at 14:59 IV Flush (NS 3 ml) 3 ml PER PROTOCOL IV ; Start 02/01/19 at 16:00 Ondansetron HCl (Zofran Inj) 4 mg Q6H PRN IV NAUSEA/VOMITING; Start 02/01/19 at 16:00 Acetaminophen (Tylenol Tab) 650 mg Q6H PRN PO .PAIN 1-3 OR TEMP; Start 02/01/19 at 16:00 Acetaminophen/ Hydrocodone Bitart ([place] (5/325)) 1 tab Q6H PRN PO .MOD PAIN 4- 6; Start 02/01/19 at 16:00 Morphine Sulfate (morphine) 2 mg Q4H PRN IV .SEVERE PAIN 7-10; Start 02/01/19 at 16:00 Docusate Sodium (Colace) 100 mg Q12H PRN PO .CONSTIPATION; Start 02/01/19 at 16:00 Magnesium Hydroxide (Milk Of Mag) 30 ml DAILY PRN PO .CONSTIPATION; Start 02/01/19 at 16:00 Pantoprazole (Protonix Tab) 40 mg DAILY@06 PO ; Start 02/02/19 at 06:00 Lorazepam (Ativan) 0.5 mg Q6H PRN IV ANXIETY; Start 02/01/19 at 16:00 Albuterol/ Ipratropium (Duoneb) 3 ml Q4H RESP THERAPY PRN HHN SHORTNESS OF BREATH; Start 02/01/19 at 16:00 Hydralazine HCl (Apresoline) 10 mg Q6H PRN IV ELEVATED BLOOD PRESSURE; Start at 16:00 Nitroglycerin (Nitroglycerin (Sl Tab) 0.4 Mg) 1 tab Q5M PRN SL ANGINA; Start 02/01/19 at 16:00 Aspirin (Ecotrin) 325 mg DAILY PO ; Start 02/02/19 at 09:00; Status UNV Apixaban (Eliquis) 2.5 mg BID PO ; Start 02/01/19 at 21:00; Status UNV Atorvastatin Calcium (Lipitor) 10 mg QHS PO ; Start 02/01/19 at 21:00; Status UNV Calcium/Vitamin D (Oyster Shell/ Vit-D (500/200)) 1 tab DAILY PO ; Start 02/02/19 at 09:00; Status UNV Ketoconazole (Nizoral Shampoo) 1 applic DAILY TOP ; Start 02/02/19 at 09:00; Status UNV Levetiracetam (Keppra) 500 mg BID PO ; Start 02/01/19 at 21:00; Status UNV Levothyroxine Sodium (Synthroid) 150 mcg BEFORE BREAKFAST PO ; Start 02/02/19 at 07:00; Status UNV Furosemide (Lasix) 40 mg DAILY IV ; Start 02/02/19 at 09:00 Allergies: Coded Allergies: No Known Allergy (Unverified , 02/01/19) Past Surgical History Past Surgical Hx: no surgical history Family History Significant Family History: no pertinent family hx Social History Alcohol Use: none Smoking Status: Never smoker Exam/Review of Systems Vital Signs Vitals Vital Signs Date Temp Pulse Resp B/P (MAP) Pulse Ox O2 O2 Flow FiO2 Time Delivery Rate 02/01/19 86 20 111/66 98 Room Air 17:25 (81) 02/01/19 97.8 15:12 Exam Constitutional: alert, oriented (No apparent distress, no dyspnea with speaking) Head: normocephalic Respiratory: other (Coarse breath sounds bilaterally, minimal scattered crackles) Cardiovascular: irregular rhythm, systolic murmur (S1-S2 heard) Gastrointestinal: soft, non-tender, bowel sounds Extremities: edema (Trace) Labs Result Diagram: 02/01/19 1230 02/01/19 1230 Results 24hrs Laboratory Tests Test 02/01/19 11:33 02/01/19 12:30 Thyroid Stimulating Hormone (TSH) 0.217 L Free Thyroxine 2.36 H White Blood Count 11.1 #H Red Blood Count 3.97 L Hemoglobin 12.2 Hematocrit 37.3 Mean Corpuscular Volume 94.0 Mean Corpuscular Hemoglobin 30.7 Mean Corpuscular Hemoglobin Concent 32.7 Red Cell Distribution Width 13.2 Platelet Count 218 Mean Platelet Volume 10.9 H Immature Granulocytes % 0.600 H Neutrophils % 70.2 Lymphocytes % 18.9 Monocytes % 9.6 Eosinophils % 0.3 Basophils % 0.4 Nucleated Red Blood Cells % 0.0 Immature Granulocytes # 0.070 H Neutrophils # 7.8 H Lymphocytes # 2.1 Monocytes # 1.1 H Eosinophils # 0.0 Basophils # 0.0 Nucleated Red Blood Cells # 0.0 Prothrombin Time 14.1 Prothrombin Time Ratio 1.1 INR International Normalized Ratio 1.08 Sodium Level 139 Potassium Level 4.0 Chloride Level 106 Carbon Dioxide Level 25 Anion Gap 8 Blood Urea Nitrogen 15 Creatinine 0.95 Est Glomerular Filtrat Rate mL/min Glucose Level 119 Calcium Level 9.1 Troponin I < 0.012 B-Type Natriuretic Peptide 2710 H Imaging Imaging Atrial fibrillation at 90 bpm, QRS 62 ms, nonspecific ST abnormalities Medications Medications Current Medications Ondansetron HCl (Zofran Inj) 4 mg ER BRIDGE PRN IV NAUSEA/VOMITING; Start 02/01/19 at 15:00; Stop 02/02/19 at 14:59 Acetaminophen (Tylenol Tab) 650 mg ER BRIDGE PRN PO .MILD PAIN 1-3 OR TEMP; Start 02/01/19 at 15:00; Stop 02/02/19 at 14:59 IV Flush (NS 3 ml) 3 ml PER PROTOCOL IV ; Start 02/01/19 at 16:00 Ondansetron HCl (Zofran Inj) 4 mg Q6H PRN IV NAUSEA/VOMITING; Start 02/01/19 at 16:00 Acetaminophen (Tylenol Tab) 650 mg Q6H PRN PO .PAIN 1-3 OR TEMP; Start 02/01/19 at 16:00 Acetaminophen/ Hydrocodone Bitart ([place] (5/325)) 1 tab Q6H PRN PO .MOD PAIN 4- 6; Start 02/01/19 at 16:00 Morphine Sulfate (morphine) 2 mg Q4H PRN IV .SEVERE PAIN 7-10; Start 02/01/19 at 16:00 Docusate Sodium (Colace) 100 mg Q12H PRN PO .CONSTIPATION; Start 02/01/19 at 16:00 Magnesium Hydroxide (Milk Of Mag) 30 ml DAILY PRN PO .CONSTIPATION; Start 02/01/19 at 16:00 Pantoprazole (Protonix Tab) 40 mg DAILY@06 PO ; Start 02/02/19 at 06:00 Lorazepam (Ativan) 0.5 mg Q6H PRN IV ANXIETY; Start 02/01/19 at 16:00 Albuterol/ Ipratropium (Duoneb) 3 ml Q4H RESP THERAPY PRN HHN SHORTNESS OF BREATH; Start 02/01/19 at 16:00 Hydralazine HCl (Apresoline) 10 mg Q6H PRN IV ELEVATED BLOOD PRESSURE; Start 02/01/19 at 16:00 Nitroglycerin (Nitroglycerin (Sl Tab) 0.4 Mg) 1 tab Q5M PRN SL ANGINA; Start 02/01/19 at 16:00 Aspirin (Ecotrin) 325 mg DAILY PO ; Start 02/02/19 at 09:00; Status UNV Apixaban (Eliquis) 2.5 mg BID PO ; Start 02/01/19 at 21:00; Status UNV Atorvastatin Calcium (Lipitor) 10 mg QHS PO ; Start 02/01/19 at 21:00; Status UNV Calcium/Vitamin D (Oyster Shell/ Vit-D (500/200)) 1 tab DAILY PO ; Start 02/02/19 at 09:00; Status UNV Ketoconazole (Nizoral Shampoo) 1 applic DAILY TOP ; Start 02/02/19 at 09:00; Status UNV Levetiracetam (Keppra) 500 mg BID PO ; Start 02/01/19 at 21:00; Status UNV Levothyroxine Sodium (Synthroid) 150 mcg BEFORE BREAKFAST PO ; Start 02/02/19 at 07:00; Status UNV Furosemide (Lasix) 40 mg DAILY IV ; Start 02/02/19 at 09:00 Francisco Harman DO February 01, 2019 18:03
[2019-02-01] MEDS ORDERED: NON-FORMULARY/PATIENT OWN MED (Simvastatin* (Zocor*) 10 MG) PO SCH (21:00)
[2019-02-01] MEDS ORDERED: APIXABAN 5 MG TABLET PO SCH (21:00)
[2019-02-01] MEDS ORDERED: ATORVASTATIN 10 MG TAB PO SCH (21:00)
[2019-02-01 22:00] VITALS: BP 125/69; PULSE 84; RESP 22; Ht 157.5 cm; Wt 74.6 kg
[2019-02-01] MEDS: METOPROLOL 25 MG TAB PO SCH (23:19)
[2019-02-02] VITALS (9 sets, daily range): BP systolic 92–142; BP diastolic 54–79; PULSE 57–84; RESP 18–20
[2019-02-02] MEDS: LEVETIRACETAM 500 MG TAB PO SCH ×2 (01:39→09:45)
[2019-02-02] MEDS: APIXABAN 5 MG TABLET PO SCH ×2 (01:39→09:20)
[2019-02-02] MEDS ORDERED: PANTOPRAZOLE (EC) 40 MG TAB PO SCH (06:00)
[2019-02-02] MEDS ORDERED: LEVOTHYROXINE 150 MCG TAB PO SCH (07:00)
[2019-02-02] MEDS ORDERED: FUROSEMIDE 40 MG INJ IV SCH ×2 (09:00)
[2019-02-02] MEDS ORDERED: KETOCONAZOLE 2% SHAMPOO 120 ML BTL TOP SCH (09:00)
[2019-02-02] MEDS ORDERED: ASPIRIN (EC) 81 MG TAB PO SCH (09:00)
[2019-02-02] MEDS ORDERED: CALCIUM/VITAMIN D (500/200) TAB PO SCH (09:00)
[2019-02-02] MEDS ORDERED: ASPIRIN (EC) 325 MG TAB PO SCH (09:00)
[2019-02-02] MEDS ORDERED: LOSARTAN 25 MG TAB PO SCH (09:00)
[2019-02-02] MEDS: METOPROLOL 25 MG TAB PO SCH (09:15)
--- NOTE | 2019-02-02 10:55 | CONS ---
Assessment/Plan Cardiology NYHA: II Heart Failure Type: Acute on Chronic Heart Failure Type: Diastolic Assessment/Plan Hospital Course (Demo Recall) Acute decompensated diastolic congestive heart failure Preserved ejection fraction Mitral and tricuspid valve regurgitation Atrial fibrillation Hypertension -Patient with improvement in symptoms, with switch IV diuretics to p.o. -Continue Eliquis at current dose, DC aspirin -Beta-wilfrido and ARB as tolerated Consultation Date/Type/Reason Admit Date/Time February 01, 2019 at 15:01 Initial Consult Date Type of Consult Cardiology Date/Time of Note DATE: 02/02/19 TIME: 10:51 24 HR Interval Summary Free Text/Dictation Denies any shortness of breath or chest discomfort. Complains of discomfort with swallowing and dry mouth. Denies dizziness or lightheadedness or palpitations Exam/Review of Systems Vital Signs Vitals Vital Signs Date Temp Pulse Resp B/P (MAP) Pulse Ox O2 O2 Flow FiO2 Time Delivery Rate 02/02/19 81 08:00 02/02/19 98.1 18 118/58 98 Room Air 04:00 (78) Exam Constitutional: alert, oriented (No apparent distress) Respiratory: other (Coarse breath sounds, no wheezing or rails) Cardiovascular: irregular rhythm (S1-S2 heard) Gastrointestinal: soft, non-tender, bowel sounds Extremities: edema (Trace) Labs Result Diagram: 02/02/197 02/02/197 Results 24hrs Laboratory Tests Test 02/01/19 11:33 02/01/19 12:30 02/01/19 18:58 02/02/19 00:22 Thyroid Stimulating 0.217 L Hormone (TSH) Free Thyroxine 2.36 H White Blood Count 11.1 #H Red Blood Count 3.97 L Hemoglobin 12.2 Hematocrit 37.3 Mean Corpuscular 94.0 Volume Mean Corpuscular 30.7 Hemoglobin Mean Corpuscular 32.7 Hemoglobin Concent Red Cell Distribution 13.2 Width Platelet Count 218 Mean Platelet Volume 10.9 H Immature Granulocytes 0.600 H % Neutrophils % 70.2 Lymphocytes % 18.9 Monocytes % 9.6 Eosinophils % 0.3 Basophils % 0.4 Nucleated Red Blood 0.0 Cells % Immature Granulocytes 0.070 H # Neutrophils # 7.8 H Lymphocytes # 2.1 Monocytes # 1.1 H Eosinophils # 0.0 Basophils # 0.0 Nucleated Red Blood 0.0 Cells # Prothrombin Time 14.1 Prothrombin Time Ratio 1.1 INR International 1.08 Normalized Ratio Sodium Level 139 Potassium Level 4.0 Chloride Level 106 Carbon Dioxide Level 25 Anion Gap 8 Blood Urea Nitrogen 15 Creatinine 0.95 Est Glomerular Filtrat Rate mL/min Glucose Level 119 Calcium Level 9.1 Troponin I < 0.012 < 0.012 < 0.012 B-Type Natriuretic 2710 H Peptide Creatine Kinase 50 55 Creatine Kinase Index 1.1 1.1 Creatinine Kinase MB 0.55 0.61 (Mass) Test 02/02/19 04:47 White Blood Count 11.8 H Red Blood Count 4.49 Hemoglobin 13.7 Hematocrit 41.9 Mean Corpuscular 93.3 Volume Mean Corpuscular 30.5 Hemoglobin Mean Corpuscular 32.7 Hemoglobin Concent Red Cell Distribution 13.2 Width Platelet Count 242 Mean Platelet Volume 11.0 H Immature Granulocytes 0.300 % Neutrophils % 73.3 Lymphocytes % 16.2 Monocytes % 9.2 Eosinophils % 0.7 Basophils % 0.3 Nucleated Red Blood 0.0 Cells % Immature Granulocytes 0.040 H # Neutrophils # 8.6 H Lymphocytes # 1.9 Monocytes # 1.1 H Eosinophils # 0.1 Basophils # 0.0 Nucleated Red Blood 0.0 Cells # Sodium Level 140 Potassium Level 4.2 Chloride Level 103 Carbon Dioxide Level 27 Anion Gap 10 Blood Urea Nitrogen 17 Creatinine 0.96 Est Glomerular Filtrat Rate mL/min Glucose Level 129 Hemoglobin A1c 6.5 H Calcium Level 9.4 Phosphorus Level 3.6 Magnesium Level 1.9 Triglycerides Level 94 Cholesterol Level 153 LDL Cholesterol, 81 Calculated HDL Cholesterol 53 Cholesterol/HDL Ratio 2.8 Thyroid Stimulating 0.328 L Hormone (TSH) Medications Medications Current Medications IV Flush (NS 3 ml) 3 ml PER PROTOCOL IV ; Start 02/01/19 at 16:00 Ondansetron HCl (Zofran Inj) 4 mg Q6H PRN IV NAUSEA/VOMITING; Start 02/01/19 at 16:00 Acetaminophen (Tylenol Tab) 650 mg Q6H PRN PO .PAIN 1-3 OR TEMP; Start 02/01/19 at 16:00 Acetaminophen/ Hydrocodone Bitart ([place] (5/325)) 1 tab Q6H PRN PO .MOD PAIN 4- 6; Start 02/01/19 at 16:00 Morphine Sulfate (morphine) 2 mg Q4H PRN IV .SEVERE PAIN 7-10; Start 02/01/19 at 16:00 Docusate Sodium (Colace) 100 mg Q12H PRN PO .CONSTIPATION; Start 02/01/19 at 16:00 Magnesium Hydroxide (Milk Of Mag) 30 ml DAILY PRN PO .CONSTIPATION; Start 02/01/19 at 16:00 Pantoprazole (Protonix Tab) 40 mg DAILY@06 PO ; Start 02/02/19 at 06:00 Lorazepam (Ativan) 0.5 mg Q6H PRN IV ANXIETY; Start 02/01/19 at 16:00 Albuterol/ Ipratropium (Duoneb) 3 ml Q4H RESP THERAPY PRN HHN SHORTNESS OF BREATH; Start 02/01/19 at 16:00 Hydralazine HCl (Apresoline) 10 mg Q6H PRN IV ELEVATED BLOOD PRESSURE; Start 02/01/19 at 16:00 Nitroglycerin (Nitroglycerin (Sl Tab) 0.4 Mg) 1 tab Q5M PRN SL ANGINA; Start 02/01/19 at 16:00 Atorvastatin Calcium (Lipitor) 10 mg QHS PO Last administered on 02/02/19at 01:39; Admin Dose 10 MG; Start 02/01/19 at 21:00 Calcium/Vitamin D (Oyster Shell/ Vit-D (500/200)) 1 tab DAILY PO ; Start 02/02/19 at 09:00 Ketoconazole (Nizoral Shampoo) 1 applic DAILY TOP ; Start 02/02/19 at 09:00 Levetiracetam (Keppra) 500 mg BID PO Last administered on 02/02/19at 01:39; Admin Dose 500 MG; Start 02/01/19 at 21:00 Levothyroxine Sodium (Synthroid) 150 mcg BEFORE BREAKFAST PO ; Start 02/02/19 at 07:00 Apixaban (Eliquis) 5 mg BID PO Last administered on 02/02/19at 01:39; Admin Dose 5 MG; Start 02/01/19 at 21:00 Aspirin (Halfprin) 81 mg DAILY PO ; Start 02/02/19 at 09:00 Furosemide (Lasix) 40 mg BID DIURETICS IV ; Start 02/02/19 at 09:00 Metoprolol Tartrate (Lopressor) 25 mg BID PO Last administered on 02/01/19at 23:19; Admin Dose 25 MG; Start 02/01/19 at 21:00 Losartan Potassium (Cozaar) 25 mg DAILY PO ; Start 02/02/19 at 09:00 Francisco Harman DO February 02, 2019 10:55
[2019-02-02] MEDS ORDERED: APIX5TAB PO (14:23)
[2019-02-02] MEDS ORDERED: FURO40TA4 PO (14:23)
--- NOTE | 2019-02-02 14:29 | DS ---
Date/Time of Note Date/Time of Note DATE: 02/02/19 TIME: 14:27 Discharge Summary Admission/Discharge Info Admit Date/Time February 01, 2019 at 15:01 Discharge Date/Time Patient Condition: Stable Hx of Present Illness 83-year-old female with past medical history of high cholesterol, diastolic dysfunction, prior stroke, prior flu, hypertension, atrial fibrillation on Eliq uis, hypothyroidism, seizures who comes in with chest pain. She said the symptoms began yesterday mildly radiating to the left arm, pressure-like sensation in the left chest. She does have some mild shortness of breath symptoms. Denied any upper or lower GI bleeding. No nausea, vomiting. No fevers or chills. No diarrhea or constipation. The patient was here at our hospital last month from 01/09/2019 to 01/10/2019. At that time, she was treated for mild CHF exacerbation and head itching. When she came in today, she was found with elevated BNP levels of 2700 and her chest x-ray today did show signs of mild central pulmonary vascular congestion without overt [place] pulmonary edema. There are also diminished lung volumes with lower lobe pulmonary vessel crowding or subsegmental atelectasis, stable cardiomegaly with aortic atherosclerosis and the patient in the ER received high dose aspirin and a dose of IV Lasix as well. Hospital Course Patient was admitted to telemetry floor and found with acute decompensated diastolic congestive heart failure. Patient was placed on appropriate cardiac medications including low-dose IV diuretics. Patient's shortness breath symptoms improved. She was seen by physical therapy and speech therapy teams as well and did fairly well with those services. She was able to ambulate, tolerated p.o. diet. Vital signs and labs are stable. After getting clearance from dairy feed sales consultant teams patient will be discharged home today improved condition. She did have an adjustment made to her Eliquis dose which she takes at home normally for atrial fibrillation. See below for full list of discharge medications. Home Meds Active Scripts Furosemide* (Furosemide*) 40 Mg Tablet, 40 MG PO DAILY, #30 TAB 4 Refills Prov:RAANGELI,INDIGO S. 02/02/19 Apixaban* (Eliquis*) 5 Mg Tablet, 5 MG PO BID, #90 TAB 4 Refills Prov:CAROL BLAKEP S. 02/02/19 Ketoconazole* (Ketoconazole*) 2% - 120 Ml Shampoo, 1 APPLIC TOP DAILY for 7 Days, #1 EA WASH HAIR/SCALP AND RINSE OFF Prov:CYDNEY HEATON MD 01/10/19 Reported Medications Calcium Carbonate/Vitamin D3 (Oyster Shell Calcium + D Cplt) 1 Each Tablet, 1 TAB PO DAILY for 600MG-400IU, TAB 02/01/19 Valsartan* (Diovan*) 160 Mg Tablet, 160 MG PO DAILY, TAB 02/01/19 Atorvastatin Calcium (Atorvastatin Calcium) 10 Mg Tablet, 10 MG PO QHS, #30 TAB 02/01/19 Levothyroxine Sodium* (Levoxyl*) 150 Mcg Tablet, 150 MCG PO BEFORE BREAKFAST, #30 TAB 02/01/19 Amlodipine Besylate* (Amlodipine Besylate*) 10 Mg Tablet, 10 MG PO DAILY, #30 TAB 05/17/18 Levetiracetam* (Keppra*) 500 Mg Tablet, 500 MG PO BID, TAB 05/17/18 Simvastatin* (Zocor*) 10 Mg Tablet, 10 MG PO QHS, #30 TAB 05/17/18 Discontinued Reported Medications Apixaban* (Eliquis*) 2.5 Mg Tablet, 2.5 MG PO BID, TAB 05/17/18 Levothyroxine Sodium* (Levothyroxine Sodium*) 125 Mcg Tablet, 125 MCG PO BEFORE BREAKFAST, #30 TAB 05/17/18 Discontinued Scripts Furosemide* (Furosemide*) 20 Mg Tablet, 20 MG PO Q48H for 120 Days, #60 TAB Prov:CYDNEY HEATON MD 01/10/19 Primary Care Provider [facility] Time spent on discharge: > 30 minutes Pending Labs Laboratory Tests Test 02/01/19 18:58 02/02/19 00:22 02/02/19 04:47 Creatine Kinase 50 IU/L (23-200) 55 IU/L (23-200) Creatine Kinase 1.1 1.1 Index Creatinine Kinase 0.55 0.61 MB (Mass) ng/ml (0.0-2.4) ng/ml (0.0-2.4) Troponin I < 0.012 < 0.012 ng/ml (0.000-0.120) ng/ml (0.000-0.120 ) White Blood Count 11.8 10^3/ul (4.8-10.8) Red Blood Count 4.49 10^6/ul (4.20-5.40 ) Hemoglobin 13.7 g/dl (12.0-16.0) Hematocrit 41.9 % (37.0-47.0) Mean Corpuscular 93.3 Volume fl (82.0-101.0) Mean Corpuscular 30.5 Hemoglobin pg (29.0-33.0) Mean Corpuscular 32.7 Hemoglobin Concent g/dl (32.0-37.0) Red Cell 13.2 % (11.5-14.5) Distribution Width Platelet Count 242 10^3/UL (140-415) Mean Platelet 11.0 fl (7.4-10.4) Volume Immature 0.300 Granulocytes % % (0.001-0.429) Neutrophils % 73.3 % (39.0-77.0) Lymphocytes % 16.2 % (15.0-51.0) Monocytes % 9.2 % (0.0-11.0) Eosinophils % 0.7 % (0.0-7.0) Basophils % 0.3 % (0.0-2.0) Nucleated Red Blood 0.0 Cells % /100WBC (0.0-0.0) Immature 0.040 Granulocytes # 10^3/ul (0.0-0.031 ) Neutrophils # 8.6 10^3/ul (1.6-7.5) Lymphocytes # 1.9 10^3/ul (0.8-2.9) Monocytes # 1.1 10^3/ul (0.3-0.9) Eosinophils # 0.1 10^3/ul (0.0-0.5) Basophils # 0.0 10^3/ul (0.0-0.1) Nucleated Red Blood 0.0 Cells # 10^3/ul (0.0-0.0) Sodium Level 140 mmol/L (135-144) Potassium Level 4.2 mmol/L (3.5-5.1) Chloride Level 103 mmol/L (97-110) Carbon Dioxide 27 mmol/L (21-31) Level Anion Gap 10 (5-13) Blood Urea 17 mg/dl (7-20) Nitrogen Creatinine 0.96 mg/dl (0.44-1.00) Est Glomerular mL/min (>60) Filtrat Rate mL/min Glucose Level 129 mg/dl (70-220) Hemoglobin A1c 6.5 % (0-5.9) Calcium Level 9.4 mg/dl (8.4-10.2) Phosphorus Level 3.6 mg/dl (2.5-4.9) Magnesium Level 1.9 mg/dl (1.7-2.5) Triglycerides 94 mg/dl (0-149) Level Cholesterol Level 153 mg/dl (100-200) LDL Cholesterol, 81 mg/dl Calculated HDL Cholesterol 53 mg/dl (33-92) Cholesterol/HDL 2.8 RATIO Ratio Thyroid Stimulating 0.328 Hormone (TSH) MIU/L (0.465-4.680 ) INDIGO BLAKE February 02, 2019 14:29
[2019-02-03] MEDS ORDERED: FUROSEMIDE 40 MG TAB PO SCH (09:00)
== END 2019-02-02 17:09 | disposition home or self-care (01) | DRG 293 ==
LOC: E/R 10:08 → MS3 15:01 → SUATTDRO 15:30 → 6WM 02-02 14:23
PROVIDERS: ADMIT Hospitalist; ATTEND Hospitalist
DX: I11.0 Hypertensive heart disease with heart failure (principal); I50.33 Acute on chronic diastolic (congestive) heart failure; R07.9 Chest pain, unspecified; E03.9 Hypothyroidism, unspecified; I48.91 Unspecified atrial fibrillation
CPT/HCPCS: 71045; 80048; 80061; 82550; 82553; 83036; 83735; 83880; 84100; 84439; 84443; 84484; 85025; 85610; 92610; 93005; 97162; J1940